=== PATIENT | male | born 1955 | race Caucasian/White ===

== ENCOUNTER 2019-04-27 23:32 | Emergency (ER) | payer OTHER, BC ==
[2019-04-27 23:46] VITALS: TEMP 98; BMI 19.2
[2019-04-28] MEDS ORDERED: ONDANSETRON 4 MG/2 ML VIAL IVPUSH ONE (00:37)
[2019-04-28] MEDS ORDERED: LACTATED RINGERS SOLUTION 1,000 ML/1,000 ML INFUS.BAG IV STA (00:37)
--- NOTE | 2019-04-28 00:45 | PDOC ---
History of Present Illness - General Chief Complaint: Nausea/Vomiting Stated Complaint: UNABLE TO RETAIN FOOD Time Seen by Provider: 04/28/19 00:20 History Source: Patient Exam Limitations: No Limitations - History of Present Illness Initial Comments: 63 yo M PMH T1DM, pancreatic neuroendocrine tumor diagnosed in 2011, currently on monthly shot (oncologist Dr. Cope at [place]), p/w 2 days of weakness, lightheadedness, and nausea w/ vomiting. Said "I overdid it yesterday" moving from his apartment, got SOB with exertion then. Took his PO Zofran around 1300, threw up around 1330. Had another episode of emesis before bed and one more today. Has had poor intake, last time he kept something down was on Wednesday. Notes that he feels dehydrated. Had his lab work checked last week, Hgb 10.4, WBC 3.6. Says his dizziness is exacerbated by sitting up quickly and feels like the room is spinning. Denies CP, SOB at rest, constipation, diarrhea, fevers/chills, RED. Endorses dizziness, lightheadedness, SOB with exertion, nausea, and vomiting. 04/28/19 00:40 Past History - Past Medical History Allergies/Adverse Reactions: Allergies Allergy/AdvReac Type Severity Reaction Status Date / Time No Known Allergies Allergy Verified 04/27/19 23:40 Home Medications: Ambulatory Orders Aspirin [ASA -] 81 mg PO DAILY 08/03/16 Insulin (Levemir) [Levemir Flexpen -] 6 units SQ DAILY 08/03/16 Metoprolol Tartrate 25 mg PO BID 08/03/16 Mometasone Furoate [Asmanex 110Mcg -] 1 inh IH DAILY 08/03/16 Cancer: Yes (PANCREATIC) COPD: No Diabetes: Yes (IDDM) - Suicide/Smoking/Psychosocial Hx Smoking History: Never smoked Hx Alcohol Use: No Drug/Substance Use Hx: No Substance Use Type: None Review of Systems - Review of Systems Able to Perform ROS?: Yes Constitutional: Yes: Weakness, Unintentional Wgt. Loss. No: Chills, Diaphoresis , Fever, Malaise HEENTM: No: Eye Pain, Blurred Vision, Tearing, Recent change in vision, Double Vision, Ear Discharge, Nose Pain, Nose Congestion, Hearing Loss, Throat Pain, Throat Swelling, Difficulty Swallowing, Mouth Swelling Respiratory: Yes: SOB with Exertion. No: Cough, Orthopnea, SOB at Rest Cardiac (ROS): Yes: Lightheadedness. No: Chest Pain, Edema, Irregular Heart Rate ABD/GI: Yes: Nausea, Poor Appetite, Poor Fluid Intake, Vomiting. No: Abdominal Distended, Blood Streaked Bowels, Constipated, Diarrhea : No: Burning, Dysuria, Discharge, Frequency, Flank Pain Neurological: No: Headache, Numbness, Paresthesia, Seizure, Tingling *Physical Exam - Vital Signs Last Vital Signs Temp Pulse Resp BP Pulse Ox 98 F 105 H 18 96/53 L 98 04/27/19 23:36 04/27/19 23:36 04/27/19 23:36 04/27/19 23:36 04/27/19 23:36 - Physical Exam General Appearance: Yes: Appropriately Dressed, Cachetic. No: Apparent Distress HEENT: positive: EOMI, KATHLEEN, Normal ENT Inspection, Normal Voice, Symmetrical, Pharynx Normal, Hearing Grossly Normal Neck: positive: Trachea midline, Normal Thyroid, Supple. negative: Tender, Rigid Respiratory/Chest: positive: Lungs Clear, Normal Breath Sounds. negative: Chest Tender, Respiratory Distress, Accessory Muscle Use Cardiovascular: positive: Regular Rhythm, Regular Rate Gastrointestinal/Abdominal: positive: Normal Bowel Sounds, Flat, Soft. negative : Tender Musculoskeletal: positive: Normal Inspection. negative: CVA Tenderness Extremity: positive: Normal Capillary Refill, Normal Inspection, Normal Range of Motion Integumentary: positive: Normal Color, Dry, Warm Neurologic: positive: backshoe person II-XII NML intact, Fully Oriented, Alert, Normal Mood/ Affect, Normal Response, Motor Strength / ED Treatment Course - LABORATORY CBC & Chemistry Diagram: 04/28/19 00:52 04/28/19 00:52 Medical Decision Making - Medical Decision Making Will give 1L LR, CBC, CMP, CXR, EKG, lipase, magnesium, acetone, UA, Zofran 04/28/19 00:47 Ph 7.44, Base Deficit -3.4 04/28/19 01:06 Hgb 9.8 04/28/19 01:07 EKG reviewed, low voltage, NSR at 88 bpm, normal axis, normal intervals, no acute ST segment elevation or T wave changes. Lipase 27 04/28/19 01:20 POC glucose 150. 07/26/19 01:33 Acetone negative. 04/28/19 01:46 Na 134, Ca 8.2 04/28/19 01:51 *DC/Admit/Observation/Transfer Diagnosis at time of Disposition: Nausea & vomiting - Discharge Dispostion Disposition: HOME Condition at time of disposition: Guarded Decision to Admit order: No - Referrals Referrals: [facility] [place] [facility] [place] [Provider Group] - Patient Instructions Printed Discharge Instructions: Pancreatic Cancer, DI for Abdominal Pain-Adult , DI for Vomiting -- Adult Additional Instructions: Please see your Primary Doctors taking care of your pancreatic cancer and provide them with the CAT scan results demonstrating mass in the liver. Return to the ER for new or concerning symptoms including but not limited to: abdominal pain, fevers, back pain, inability to eat or drink. Take over the counter medications for your pain. Thank you - Post Discharge Activity
[2019-04-28] MEDS ORDERED: FAMOTIDINE 20 MG/50 ML IVPB 20 MG/50 ML MG IVPB ONE (00:49)
--- NOTE | 2019-04-28 01:01 | PDOC ---
Documentation entered by Ana Burnett SCRIBE, acting as scribe for Pamella Moreno DO. Pamella Moreno DO: This documentation has been prepared by the Lex bustos Adrianna, SCRIBE, under my direction and personally reviewed by me in its entirety. I confirm that the documentation accurately reflects all work, treatment, procedures, and medical decision making performed by me. Attending Attestation - Resident Resident Name: Mason Smith - [facility] HPI: The patient is a 63 year old male, with a significant PMH of pancreatic cancer, diabetes, who presents to the ED for evaluation of nausea, vomit, and generalized weakness for 2 days. Patient notes he was moving things into an apartment, when he felt SOB and nauseous. Patient took his Zofran, but threw it up 30 minutes after. He endorses 2 more episodes of NBNB vomit since. He endorses generalized weakness and room-spinning dizziness. Denies fever, chills, chest pain, headache. Allergies: NKA, NKDA Surgical History: None reported Social History: Denies EtOH, tobacco, or illicit drug use - Physicial Exam PE: Constitutional: +Cachectic. +Pale. Awake, alert, oriented. No acute distress. Head: Normocephalic. Atraumatic Eyes: PERRL. EOMI. ENT: +Dry mucous membranes. Posterior pharynx without exudates or erythema. Uvula midline. Neck: Supple. Full ROM. No lymphadenopathy. Cardiovascular: +Tachycardic. Regular rhythm. S1, S2 regular. Distal pulses are 2+ and symmetric. Pulmonary/Chest: No evidence of respiratory distress. Clear to auscultation bilaterally No wheezing, rales or rhonchi. Abdominal: Soft and nondistended. There is no tenderness. No rebound, guarding or rigidity. No organomegaly. No palpable masses. Good bowel sounds. Back: No CVA tenderness. Musculoskeletal: No edema. No cyanosis. No clubbing. Full range of motion in all extremities. No calf tenderness. Radial/pedal pulses are intact and 2+ bilaterally Skin: Skin is warm and dry. No petechiae. No purpura. No rash. Neurological: Alert and oriented to person, place, and time. Cranial nerves II -XII are grossly intact. Normal speech. Strength is grossly symmetric. No sensory deficits. Psychiatric: Good eye contact. Normal interaction, affect and behavior. - Medical Decision Making 04/28/19 00:59 a/p: 63yo male with hx of neuroendocrine tumor on monthly chemo injections at [facility] presents for eval of n/v and abd cramping -nonbilious/nonbloody vomitus -pt states unable to tolerate po x 2 days -last chem was last week -pt cachectic, pale -abd is soft, nt -will send labs, ekg, cxr -will send acetone and finger stick for glucose -will start ivf hydration, zofran -will monitor and reassess 04/28/19 01:42 no elevated wbc h/h stable acetone neg gluc 150 chem pending 04/28/19 01:58 elevated lft abd pain, n/v, hx of ca will obtain ct abd/pelvis -will give another L nss 04/28/19 01:59 pt signed out to the oncoming ED physician pending ct imaging. Heart Score/ECG Review - ECG Intrepretation Comment:: 04/28/19 00:59 sinus at 88, nl axis, nl interval, no acute st/t wave findings
[2019-04-28 01:02] LABS: BASO % 0.4 % (0-2.0); EOS % 2.2 % (0-4.5); HEMATOCRIT 29.7 % (35.4-49); HEMOGLOBIN 9.8 GM/dL (11.7-16.9); LYMPH % 10.1 % (8-40); MCH 25.1 pg (25.7-33.7); MCHC 32.9 g/dl (32.0-35.9); MEAN CELL VOLUME 76.1 fl (80-96); MEAN PLT VOLUME 8.6 fl (7.5-11.1); MONO % 10.2 % (3.8-10.2); NEUT % 77.1 % (42.8-82.8); PLATELET COUNT 140 K/MM3 (134-434); RBC 3.91 M/mm3 (4.00-5.60); RDW 15.9 % (11.9-15.9); VENOUS PC02 29.7 mmHg (41-51); VENOUS PH 7.44 (7.31-7.41); VENOUS PO2 87.8 mmHg (30-40); WHITE BLOOD COUNT 5.4 K/mm3 (4.0-10.0)
[2019-04-28] MEDS ORDERED: ONDANSETRON 4 MG/2 ML VIAL ONE (01:21)
[2019-04-28 01:50] LABS: ALBUMIN 2.6 g/dl (3.4-5.0); BILIRUBIN,TOTAL 0.5 mg/dL (0.2-1); BLOOD UREA NITROGEN 12.2 mg/dL (7-18); CALCIUM 8.2 mg/dL (8.5-10.1); CREATININE 0.6 mg/dL (0.55-1.3); POTASSIUM 4.2 mmol/L (3.5-5.1); TOT PROT 5.1 g/dl (6.4-8.2)
[2019-04-28] MEDS ORDERED: SODIUM CHLORIDE 1,000 ML IV STA (01:50)
[2019-04-28 01:53] VITALS: PULSE 85
[2019-04-28 02:17] LABS: EPI CELLS 5.8 /HPF (0-5/HPF); HYALINE CASTS 72 /lpf (0-8); URINE APPEARANCE CLOUDY; URINE BACTERIA 3.5 /hpf (NEGATIVE); URINE BILIRUBIN NEGATIVE (NEGATIVE); URINE COLOR DK YELLOW; URINE GLUCOSE (UA) 1+ (NEGATIVE); URINE KETONE TRACE (NEGATIVE); URINE LEUK ESTERASE NEGATIVE (NEGATIVE); URINE NITRITE NEGATIVE (NEGATIVE); URINE PROTEIN 2+ (NEGATIVE); URINE RBC 1 /hpf (0-4); URINE WBC 2 /hpf (0-5)
[2019-04-28 04:13] VITALS: BP 96/56
--- NOTE | 2019-04-28 04:20 | PDOC ---
*Physical Exam - Vital Signs Last Vital Signs Temp Pulse Resp BP Pulse Ox 98 F 85 18 96/56 L 99 04/27/19 23:36 04/28/19 04:13 04/28/19 01:52 04/28/19 04:13 04/28/19 04:13 ED Treatment Course - LABORATORY CBC & Chemistry Diagram: 04/28/19 00:52 04/28/19 00:52 - ADDITIONAL ORDERS Additional order review: Laboratory Results 04/28/19 04/28/19 04/28/19 02:10 01:29 00:52 VBG pH 7.44 H POC VBG pCO2 29.7 L POC VBG pO2 87.8 H VBG HCO3 19.7 L VBG O2 Sat (Inez) 97.6 H VBG Base Excess -3.4 L Sodium Potassium Chloride Carbon Dioxide Anion Gap BUN Creatinine Est GFR (CKD-EPI)AfAm Est GFR (CKD-EPI)NonAf POC Glucometer 150 Random Glucose Calcium Magnesium Total Bilirubin AST ALT Alkaline Phosphatase Total Protein Albumin Lipase Urine Color Dk yellow Urine Appearance Cloudy Urine pH 5.0 Ur Specific Haughton 1.022 Urine Protein 2+ H Urine Glucose (UA) 1+ H Urine Ketones Trace H Urine Blood Negative Urine Nitrite Negative Urine Bilirubin Negative Urine Urobilinogen 1.0 Ur Leukocyte Esterase Negative Urine WBC (Auto) 2 Urine RBC (Auto) 1 Urine Casts (Auto) 72 U Epithel Cells (Auto) 5.8 Urine Bacteria (Auto) 3.5 Acetone, Qual 04/28/19 04/28/19 04/28/19 00:52 00:52 00:52 VBG pH POC VBG pCO2 POC VBG pO2 VBG HCO3 VBG O2 Sat (Inez) VBG Base Excess Sodium 134 L Potassium 4.2 Chloride 105 Carbon Dioxide 22 Anion Gap 7 L BUN 12.2 Creatinine 0.6 Est GFR (CKD-EPI)AfAm 124.89 Est GFR (CKD-EPI)NonAf 107.76 POC Glucometer Random Glucose 163 H Calcium 8.2 L Magnesium 2.0 Total Bilirubin 0.5 AST 53 H ALT 99 H Alkaline Phosphatase 98 Total Protein 5.1 L Albumin 2.6 L Lipase 27 L Urine Color Urine Appearance Urine pH Ur Specific Haughton Urine Protein Urine Glucose (UA) Urine Ketones Urine Blood Urine Nitrite Urine Bilirubin Urine Urobilinogen Ur Leukocyte Esterase Urine WBC (Auto) Urine RBC (Auto) Urine Casts (Auto) U Epithel Cells (Auto) Urine Bacteria (Auto) Acetone, Qual Negative 04/28/19 04/28/19 01:29 00:52 RBC 3.91 L MCV 76.1 L MCHC 32.9 RDW 15.9 D MPV 8.6 D Neutrophils % 77.1 Lymphocytes % 10.1 D Monocytes % 10.2 Eosinophils % 2.2 D Basophils % 0.4 POC Glucometer 150 - Medications Given in the ED: ED Medications Discontinued Medications Generic Name Dose Route Start Last Admin Trade Name Shay PRN Reason Stop Dose Admin Lactated Ringer's 1,000 ml in 1,000 mls @ 1,000 mls/hr 04/28/19 00:37 01:25 Lactated Ringers Solution IV 04/28/19 01:36 1,000 mls/hr ONCE STA Administration Famotidine/Sodium Chloride 20 mg in 50 mls @ 100 mls/hr 04/28/19 00:49 01:52 Pepcid 20 Mg Premixed Ivpb - IVPB 04/28/19 01:18 100 mls/hr ONCE ONE Administration Sodium Chloride 1,000 mls @ 1,000 mls/hr 04/28/19 01:50 04/28/19 02:07 Normal Saline - IV 04/28/19 02:49 1,000 mls/hr ASDIR STA Administration Ondansetron HCl 4 mg 04/28/19 00:37 04/28/19 01:25 Zofran Injection IVPUSH 04/28/19 00:38 4 mg NOW ONE Administration Medical Decision Making - Medical Decision Making 04/28/19 04:14 63 yo male hx of neuroendocrine tumor on monthly chemo injections at [facility] presents for eval of n/v PE shows soft non tender abdomen. Pending CTAP and plan per day team is to PO challenge and send home if no acute findings made Shows known mass in the pancreas with possible metastatic lesion to the liver which fits elevated LFTs on todays visit. Pt tolerating PO, states he feels better and would like to be DC home at this time Pt will F/U with Onc specialists at [place] Pt aware of plan and agrees *DC/Admit/Observation/Transfer Diagnosis at time of Disposition: Nausea & vomiting - Discharge Dispostion Disposition: HOME Condition at time of disposition: Stable Decision to Admit order: No - Referrals Referrals: [facility] [place] [facility] [place] [Provider Group] - Patient Instructions Printed Discharge Instructions: DI for Vomiting -- Adult, DI for Abdominal Pain -Adult, Pancreatic Cancer Additional Instructions: Please see your Primary Doctors taking care of your pancreatic cancer and provide them with the CAT scan results demonstrating mass in the liver. Return to the ER for new or concerning symptoms including but not limited to: abdominal pain, fevers, back pain, inability to eat or drink. Take over the counter medications for your pain. Thank you - Post Discharge Activity
--- NOTE | 2019-04-28 11:58 | EKG ---
Test Reason : Blood Pressure : / mmHG Vent. Rate : 088 BPM Atrial Rate : 088 BPM P-R Int : 160 ms QRS Dur : 088 ms QT Int : 378 ms P-R-T Axes : 070 022 070 degrees QTc Int : 457 ms NORMAL SINUS RHYTHM WHEN COMPARED WITH ECG OF 03-AUG-2016 20:25, NO SIGNIFICANT CHANGE WAS FOUND Confirmed by ZURDO LOPEZ MD ([id number]) on 04/28/2019 11:58:10 AM Referred By: Confirmed By:ZURDO LOPEZ MD
== END 2019-04-28 04:30 | disposition home or self-care (01) ==
LOC: JER 23:32
PROC: 3E033GC Introduction of Other Therapeutic Substance into Peripheral Vein, Percutaneous Approach (ICD-10-PCS; principal; 2019-04-27)
PROC: 3E0337Z Introduction of Electrolytic and Water Balance Substance into Peripheral Vein, Percutaneous Approach (ICD-10-PCS; 2019-04-27)
DX: R11.2 Nausea with vomiting, unspecified (principal); E11.9 Type 2 diabetes mellitus without complications; Z85.07 Personal history of malignant neoplasm of pancreas; Z79.4 Long term (current) use of insulin; Z79.82 Long term (current) use of aspirin
CPT/HCPCS: 36415; 71045-TC-FY; 74177-TC; 80053; 81003; 82009; 82803; 82962; 83690; 83735; 85025; 93005; 93010; 99283-25; J7030

== ENCOUNTER 2019-07-03 14:17 | Inpatient (IN) | payer OTHER, BC ==
--- NOTE | 2019-07-03 14:51 | PDOC ---
History of Present Illness - General Stated Complaint: Diarrhea - History of Present Illness Initial Comments: The pt is a 64M w/ a history of HTN, DM, and metatstatic pancreatic cancer ( Xeloda and another medication that he does not know the name of) who presents for evaluation of 2 days of fever (Tm 100.8), 5 days of NBNB diarrhea, and 1 day of NBNB N/V. The pt endorses his sons as sick contacts w/ cough but denies cough himself. His last treatment was 13 days ago and is due to start another round this coming Wednesday. Denies RED, vision changes, cough, abdominal pain, dysuria, hematuria, or rash. BG at home was 161 Onc and Endocrine are at [facility] Onc - Dr. Aretha Cope ([phone]) Endocrine - Dr. Platt (sp?) 07/03/19 15:36 Past History - Past Medical History Allergies/Adverse Reactions: Allergies Allergy/AdvReac Type Severity Reaction Status Date / Time No Known Allergies Allergy Verified 04/27/19 23:40 Home Medications: Ambulatory Orders Aspirin [ASA -] 81 mg PO DAILY 08/03/16 Insulin (Levemir) [Levemir Flexpen -] 6 units SQ DAILY 08/03/16 Metoprolol Tartrate 25 mg PO BID 08/03/16 Mometasone Furoate [Asmanex 110Mcg -] 1 inh IH DAILY 08/03/16 Cancer: Yes (PANCREATIC) COPD: No Diabetes: Yes (IDDM) - Psycho Social/Smoking Cessation Hx Smoking History: Never smoked Hx Alcohol Use: No Drug/Substance Use Hx: No Substance Use Type: None Review of Systems - Review of Systems Able to Perform ROS?: Yes Comments:: GENERAL/CONSTITUTIONAL: +Fever; No weakness HEAD, EYES, EARS, NOSE AND THROAT: No change in vision. No change in hearing. No sore throat CARDIOVASCULAR: No chest pain or shortness of breath RESPIRATORY: Denies cough, hemoptysis GASTROINTESTINAL: No nausea, vomiting, diarrhea or constipation GENITOURINARY: No dysuria, frequency, or change in urination MUSCULOSKELETAL: No joint or muscle swelling or pain. No neck or back pain SKIN: No rash NEUROLOGIC: No headache, vertigo, loss of consciousness, or change in strength/ sensation ENDOCRINE: No increased thirst. +7 year weight loss since dx but has not noticed any acute change in weight HEMATOLOGIC/LYMPHATIC: No anemia, easy bleeding, or history of blood clots ALLERGIC/IMMUNOLOGIC: No hives or skin allergy 07/03/19 14:50 Is the patient limited Marshallese proficient: No *Physical Exam - Vital Signs 07/03/19 15:42 - Physical Exam Comments: GENERAL: Awake, alert, and oriented to person/place/time, appears tired/ cachectic HEAD: No signs of trauma, normocephalic, atraumatic EYES: PERRLA, EOMI, sclera anicteric, conjunctiva clear ENT: Hearing grossly normal, nares patent, oropharynx clear without exudates. Moist mucosa LUNGS: No distress, speaks in full sentences, clear to auscultation bilaterally HEART: Regular rate and rhythm, normal S1 and S2, no murmurs appreciated, peripheral pulses normal and equal bilaterally ABDOMEN: Soft, nontender, normoactive bowel sounds. No guarding, no rebound EXTREMITIES: Normal inspection, Normal range of motion, no edema. No clubbing or cyanosis NEUROLOGICAL: Cranial nerves II through XII grossly intact. Normal speech, no focal sensorimotor deficits SKIN: Warm, Dry 07/03/19 14:50 ED Treatment Course - LABORATORY CBC & Chemistry Diagram: 07/03/19 15:30 07/03/19 15:30 Medical Decision Making - Medical Decision Making The pt is a 64M w/ a history of HTN, DM, and metastatic prostate ca (last tx 13 days ago) who presents for evaluation of fever, N/V/D ED Course Labs sent Ofirmev and Zofran for symptomatic relief IVF Vanc/Zosyn for broad coverage 07/03/19 15:43 No leukocytosis Mild anemia, no indication to transfuse at this time Lytes unremarkable No ASCENCION LFTs mildly elevated, known mets to liver Trop I neg CXR w/o PNA UA pending Case discusses again with ICU who will now accept admission Ofirmev re-dosed for fever Pt to continue to receive Vanc/Zosyn 07/03/19 21:35 Discharge - Discharge Information Problems reviewed: Yes Clinical Impression/Diagnosis: Neuroendocrine cancer Sepsis Qualifiers: Sepsis type: sepsis due to unspecified organism Sepsis acute organ dysfunction status: unspecified Qualified Code(s): A41.9 - Sepsis, unspecified organism Nausea & vomiting Qualifiers: Vomiting type: unspecified Vomiting Intractability: non-intractable Qualified Code(s): R11.2 - Nausea with vomiting, unspecified Condition: Fair - Admission Yes - Follow up/Referral - Patient Discharge Instructions - Post Discharge Activity
--- NOTE | 2019-07-03 15:06 | PDOC ---
Attending Attestation - Resident Resident Name: Luis Arora - HPI HPI: 07/03/19 16:10 Pt presents to the ED complaining of fever and diarrhea. History of pancreatic CA, currently on chemo, presented with neutropenic fever in the past. 07/03/19 16:10 - Physicial Exam PE: 07/03/19 16:11 Agree with resident exam. PAtient is alert and oriented and in no acute distress. Lungs are clear. Heart regular rate and rhythm. Abdomen soft, non tender, non distended. - Medical Decision Making 07/03/19 16:13 Pt presents to the ED complaining of fever. History of pancreatic CA on active chemo. Concern for sepsis, neutropenic fever. Will treat with IVF, broad spectrum antibiotics, admit to medicine
[2019-07-03] MEDS ORDERED: SODIUM CHLORIDE 0.9% 500 ML INFUS.BAG IV ONE ×2 (15:10→17:31)
[2019-07-03] MEDS ORDERED: ONDANSETRON 4 MG/2 ML VIAL IVPUSH ONE (15:10)
[2019-07-03] MEDS ORDERED: ONDANSETRON 4 MG/2 ML VIAL ONE (15:11)
[2019-07-03] MEDS ORDERED: ACETAMINOPHEN INJECTION 100 ML IVPB ONE ×2 (15:19→20:53)
[2019-07-03] MEDS ORDERED: PIPERACILLIN/TAZOB 3.375 GM 3.375 GM in DEXTROSE 5%-WATER - 50 ML IVPB ONE (15:28)
[2019-07-03 15:42] LABS: VENOUS PC02 33.7 mmHg (38-52); VENOUS PH 7.43 (7.31-7.41)
[2019-07-03] MEDS ORDERED: ACETAMINOPHEN 1000 MG/100 ML VIAL (NON FORMULARY) IVPB ONE ×2 (15:44→20:00)
[2019-07-03 15:56] LABS: BASO % 0.2 % (0-2.0); EOS % 0.5 % (0-4.5); HEMATOCRIT 30.1 % (35.4-49); HEMOGLOBIN 10.1 GM/dL (11.7-16.9); LYMPH % 1.7 % (8-40); MCH 27.4 pg (25.7-33.7); MCHC 33.5 g/dl (32.0-35.9); MEAN CELL VOLUME 81.9 fl (80-96); MONO % 5.7 % (3.8-10.2); NEUT % 91.9 % (42.8-82.8); PLATELET COUNT 139 K/MM3 (134-434); RBC 3.68 M/mm3 (4.00-5.60); RDW 20.3 % (11.9-15.9); WHITE BLOOD COUNT 5.4 K/mm3 (4.0-10.0)
[2019-07-03 15:56] LABS: VENOUS PO2 < 49 mmHg (28-48)
[2019-07-03 16:13] LABS: ALBUMIN 2.9 g/dl (3.4-5.0); BILIRUBIN,TOTAL 0.7 mg/dL (0.2-1); BLOOD UREA NITROGEN 17.6 mg/dL (7-18); CALCIUM 8.6 mg/dL (8.5-10.1); CREATININE 0.7 mg/dL (0.55-1.3); POTASSIUM 4.4 mmol/L (3.5-5.1); TOT PROT 5.4 g/dl (6.4-8.2)
[2019-07-03 16:32] LABS: INR 1.12 (0.83-1.09); PROTHROMBIN TIME (PATIENT) 13.2 SEC (9.7-13.0)
[2019-07-03 16:35] LABS: ACTIVATED PTT 24.5 SECONDS (25.2-36.5)
[2019-07-03 16:51] LABS: PLATELET ESTIMATE ADEQUATE
--- NOTE | 2019-07-03 19:19 | CONSULT ---
Consultation: REQUESTING PROVIDER: ED team CONSULT REQUEST: We have been asked to medically evaluate this patient for ( sepsis). HISTORY OF PRESENT ILLNESS: The pt is a 64M w/ a history of DM, and metatstatic pancreatic cancer who presents for evaluation of 2 days of fever (Tm 100.8), 5 days of NBNB diarrhea, and 1 day of NBNB N/V. The pt endorses his sons as sick contacts w/ cough but denies cough himself. His last treatment was 13 days ago and is due to start another round this coming Wednesday. Denies RED, vision changes, cough, abdominal pain, dysuria, hematuria, or rash. BG at home was 161 Onc and Endocrine are at [facility] Onc - Dr. Aretha Cope ([phone]) Endocrine - Dr. 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 REVIEW OF SYSTEMS: CONSTITUTIONAL: Absent: fever, chills, diaphoresis, generalized weakness, malaise, loss of appetite, weight change HEENT: Absent: rhinorrhea, nasal congestion, throat pain, throat swelling, difficulty swallowing, mouth swelling, ear pain, eye pain, visual changes CARDIOVASCULAR: Absent: chest pain, syncope, palpitations, irregular heart rate, lightheadedness , peripheral edema RESPIRATORY: Absent: cough, shortness of breath, dyspnea with exertion, orthopnea, wheezing, stridor, hemoptysis GASTROINTESTINAL: Absent: abdominal pain, abdominal distension, nausea, vomiting, diarrhea, constipation, melena, hematochezia GENITOURINARY: Absent: dysuria, frequency, urgency, hesitancy, hematuria, flank pain, genital pain MUSCULOSKELETAL: Absent: myalgia, arthralgia, joint swelling, back pain, neck pain SKIN: Absent: rash, itching, pallor HEMATOLOGIC/IMMUNOLOGIC: Absent: easy bleeding, easy bruising, lymphadenopathy, frequent infections ENDOCRINE: Absent: unexplained weight gain, unexplained weight loss, heat intolerance, cold intolerance NEUROLOGIC: Absent: headache, focal weakness or paresthesias, dizziness, unsteady gait, seizure, mental status changes, bladder or bowel incontinence PSYCHIATRIC: Absent: anxiety, depression, suicidal or homicidal ideation, hallucinations. PHYSICAL EXAMINATION Vital Signs - 24 hr 07/03/19 07/03/19 14:35 17:40 Temperature 100.0 F H 99.0 F Pulse Rate 115 H Pulse Rate [ 96 H Right] Respiratory 16 17 Rate Blood Pressure 97/56 L Blood Pressure 77/46 L [Left Arm] O2 Sat by Pulse 94 L 100 Oximetry (%) GENERAL: Awake, alert, and fully oriented, in no acute distress. HEAD: Normal with no signs of trauma. EYES: Pupils equal, round and reactive to light, extraocular movements intact, LUNGS: Breath sounds equal, clear to auscultation bilaterally. No wheezes, and no crackles. No accessory muscle use. HEART: sinus tachy, normal S1 and S2 without murmur, rub or gallop. ABDOMEN: Soft, nontender, not distended, normoactive bowel sounds, MUSCULOSKELETAL: Normal range of motion at all joints. No bony deformities or tenderness. No CVA tenderness. UPPER EXTREMITIES: 2+ pulses, warm, well-perfused. No cyanosis. No clubbing. Cap refill <2 seconds. No peripheral edema. LOWER EXTREMITIES: 2+ pulses, warm, well-perfused. No calf tenderness. No peripheral edema. NEUROLOGICAL: Cranial nerves II-XII intact. Normal speech. Normal gait. PSYCHIATRIC: Cooperative. Good eye contact. Appropriate mood and affect. SKIN: Warm, dry, Laboratory Results - last 24 hr 07/03/19 07/03/19 07/03/19 15:30 15:30 15:30 WBC 5.4 RBC 3.68 L Hgb 10.1 L Hct 30.1 L MCV 81.9 MCH 27.4 MCHC 33.5 RDW 20.3 H Plt Count 139 MPV 9.0 Absolute Neuts (auto) 5.0 Total Counted 100 Neutrophils % 91.9 H Neutrophils % (Manual) 94.0 H Band Neutrophils % 3.0 Lymphocytes % 1.7 L D Lymphocytes % (Manual) 2.0 L Monocytes % 5.7 Monocytes % (Manual) 1 L Eosinophils % 0.5 Basophils % 0.2 Nucleated RBC % 0 Platelet Estimate Adequate PT with INR INR PTT (Actin FS) VBG pH POC VBG pCO2 POC VBG pO2 VBG HCO3 VBG O2 Sat (Inez) VBG Base Excess Sodium 137 Potassium 4.4 Chloride 108 H Carbon Dioxide 23 Anion Gap 7 L BUN 17.6 Creatinine 0.7 Est GFR (CKD-EPI)AfAm 116.40 Est GFR (CKD-EPI)NonAf 100.43 Random Glucose 164 H Lactic Acid Calcium 8.6 Total Bilirubin 0.7 AST 48 H ALT 73 H Alkaline Phosphatase 116 Troponin I < 0.02 Total Protein 5.4 L Albumin 2.9 L 07/03/19 07/03/19 07/03/19 15:30 15:30 15:34 WBC RBC Hgb Hct MCV MCH MCHC RDW Plt Count MPV Absolute Neuts (auto) Total Counted Neutrophils % Neutrophils % (Manual) Band Neutrophils % Lymphocytes % Lymphocytes % (Manual) Monocytes % Monocytes % (Manual) Eosinophils % Basophils % Nucleated RBC % Platelet Estimate PT with INR 13.20 H INR 1.12 H PTT (Actin FS) 24.5 L VBG pH 7.43 H POC VBG pCO2 33.7 L POC VBG pO2 < 49 H VBG HCO3 22.0 L VBG O2 Sat (Inez) 73.6 VBG Base Excess -1.4 Sodium Potassium Chloride Carbon Dioxide Anion Gap BUN Creatinine Est GFR (CKD-EPI)AfAm Est GFR (CKD-EPI)NonAf Random Glucose Lactic Acid 1.5 Calcium Total Bilirubin AST ALT Alkaline Phosphatase Troponin I Total Protein Albumin CBC, BMP 07/03/19 15:30 07/03/19 15:30 ASSESSMENT/PLAN: The pt is a 64M w/ a history of DM, and metatstatic pancreatic cancer who presents for evaluation of 2 days of fever (Tm 100.8), 5 days of NBNB diarrhea, and 1 day of NBNB N/V. was found to have gram negative bacilli and admitted to ICU for sepsis. sever Sepsis2/2 gram negative bacilli diarrhea N/V Pancreatic cancer with mets on chemo therapy Neuroendocrine cancer DM Type I on levemir 18 units HS and 8 units Novolog ACHS will give 8 units this am and then manage DM per primary team. h/o Hypothyroidism anemia unknown base line * monitor closely in icu , pt is stable and responding to fluids , denies any dizziness , light headedness , reports fever , chills, was found hypotensive 80 /60 and tachycardic 120 * monitor vitals , BP, HR , temp * mcleod cx blood urine and sputum. * IV fluids 3 L NS bolus and maintenance @125 cc/hr NS * C.diff * stool ova and paracytes * abx van/zosyn cont * consult ID * cxr no acute pathology * trend lactic acid , wbc, * resume home meds except BB and bp meds * consult heme/oncology for chemotherapy * monitor h/H daily * zofran for nausea * monitor QTC * dvts proph * diabetic diet Dispo: We will continue to follow the patient. Thank you for this consultative opportunity. Visit type - Emergency Visit Emergency Visit: Yes ED Registration Date: 07/03/19 Care time: The patient presented to the Emergency Department on the above date and was hospitalized for further evaluation of their emergent condition. - New Patient This patient is new to me today: Yes Date on this admission: 07/04/19 - Critical Care Critical Care patient: Yes Total Critical Care Time (in minutes): 45 Critical Care Statement: The care of this patient involved high complexity decision making to prevent further life threatening deterioration of the patient 's condition and/or to evaluate & treat vital organ system(s) failure or risk of failure. ATTENDING PHYSICIAN STATEMENT I saw and evaluated the patient. I reviewed the resident's note and discussed the case with the resident. I agree with the resident's findings and plan as documented. SUBJECTIVE: OBJECTIVE: ASSESSMENT AND PLAN:
--- NOTE | 2019-07-03 21:59 | HP ---
Admitting History and Physical - Primary Care Physician PCP: Lennox Macario - Admission History of Present Illness: 64M w/ a history of HTN, DM, and metatstatic pancreatic cancer (Xeloda and another medication that he does not know the name of) who presents for evaluation of 2 days of fever (Tm 100.8), 5 days of NBNB diarrhea, and 1 day of NBNB N/V. The pt endorses his sons as sick contacts w/ cough but denies cough himself. His last treatment was 13 days ago and is due to start another round this coming Wednesday. Denies RED, vision changes, cough, abdominal pain, dysuria, hematuria, or rash. BG at home was 161 - Past Medical History Gastrointestinal: Yes: Cancer (Pancreatic CA) Heme/Onc: Yes: Cancer (pancreatic) - Smoking History Smoking history: Never smoked Have you smoked in the past 12 months: No - Alcohol/Substance Use Hx Alcohol Use: No Home Medications - Allergies Allergies/Adverse Reactions: Allergies Allergy/AdvReac Type Severity Reaction Status Date / Time No Known Allergies Allergy Verified 04/27/19 23:40 - Home Medications Home Medications: Ambulatory Orders Aspirin [ASA -] 81 mg PO DAILY 08/03/16 Insulin (Levemir) [Levemir Flexpen -] 6 units SQ DAILY 08/03/16 Metoprolol Tartrate 25 mg PO BID 08/03/16 Mometasone Furoate [Asmanex 110Mcg -] 1 inh IH DAILY 08/03/16 Physical Examination Vital Signs: Vital Signs Temperature 99.0 F 07/03/19 17:40 Pulse Rate 126 H 07/03/19 21:04 Respiratory Rate 18 07/03/19 21:04 Blood Pressure 99/51 L 07/03/19 21:04 O2 Sat by Pulse Oximetry (%) 100 07/03/19 17:40 Constitutional: Yes: No Distress HENT: Yes: Atraumatic Neck: Yes: Supple Cardiovascular: Yes: Regular Rate and Rhythm Respiratory: Yes: CTA Bilaterally Gastrointestinal: Yes: Normal Bowel Sounds Extremities: Yes: WNL Neurological: Yes: Alert, Oriented Labs: CBC, BMP 07/03/19 15:30 07/03/19 15:30 Problem List - Problems (1) Nausea & vomiting Assessment/Plan: prn zofran ivf Code(s): R11.2 - NAUSEA WITH VOMITING, UNSPECIFIED Qualifiers: Vomiting type: unspecified Vomiting Intractability: non-intractable Qualified Code(s): R11.2 - Nausea with vomiting, unspecified (2) Neuroendocrine cancer Code(s): C7A.8 - OTHER MALIGNANT NEUROENDOCRINE TUMORS (3) Sepsis Assessment/Plan: iv bx cxs sent Code(s): A41.9 - SEPSIS, UNSPECIFIED ORGANISM Qualifiers: Sepsis type: sepsis due to unspecified organism Sepsis acute organ dysfunction status: unspecified Qualified Code(s): A41.9 - Sepsis, unspecified organism (4) New onset type 1 diabetes mellitus, uncontrolled Assessment/Plan: monitor bgms Code(s): E10.65 - TYPE 1 DIABETES MELLITUS WITH HYPERGLYCEMIA Assessment/Plan Laboratory Tests 07/03/19 07/03/19 07/03/19 15:30 15:30 15:30 WBC 5.4 RBC 3.68 L Hgb 10.1 L Hct 30.1 L MCV 81.9 MCH 27.4 MCHC 33.5 RDW 20.3 H Plt Count 139 MPV 9.0 Absolute Neuts (auto) 5.0 Total Counted 100 Neutrophils % 91.9 H Neutrophils % (Manual) 94.0 H Band Neutrophils % 3.0 Lymphocytes % 1.7 L D Lymphocytes % (Manual) 2.0 L Monocytes % 5.7 Monocytes % (Manual) 1 L Eosinophils % 0.5 Basophils % 0.2 Nucleated RBC % 0 Platelet Estimate Adequate PT with INR INR PTT (Actin FS) VBG pH POC VBG pCO2 POC VBG pO2 VBG HCO3 VBG O2 Sat (Inez) VBG Base Excess Sodium 137 Potassium 4.4 Chloride 108 H Carbon Dioxide 23 Anion Gap 7 L BUN 17.6 Creatinine 0.7 Est GFR (CKD-EPI)AfAm 116.40 Est GFR (CKD-EPI)NonAf 100.43 Random Glucose 164 H Lactic Acid Calcium 8.6 Total Bilirubin 0.7 AST 48 H ALT 73 H Alkaline Phosphatase 116 Troponin I < 0.02 Total Protein 5.4 L Albumin 2.9 L 07/03/19 07/03/19 07/03/19 15:30 15:30 15:34 WBC RBC Hgb Hct MCV MCH MCHC RDW Plt Count MPV Absolute Neuts (auto) Total Counted Neutrophils % Neutrophils % (Manual) Band Neutrophils % Lymphocytes % Lymphocytes % (Manual) Monocytes % Monocytes % (Manual) Eosinophils % Basophils % Nucleated RBC % Platelet Estimate PT with INR 13.20 H INR 1.12 H PTT (Actin FS) 24.5 L VBG pH 7.43 H POC VBG pCO2 33.7 L POC VBG pO2 < 49 H VBG HCO3 22.0 L VBG O2 Sat (Inez) 73.6 VBG Base Excess -1.4 Sodium Potassium Chloride Carbon Dioxide Anion Gap BUN Creatinine Est GFR (CKD-EPI)AfAm Est GFR (CKD-EPI)NonAf Random Glucose Lactic Acid 1.5 Calcium Total Bilirubin AST ALT Alkaline Phosphatase Troponin I Total Protein Albumin Active Medications Generic Name Dose Route Start Last Admin Trade Name Freq PRN Reason Stop Dose Admin Aspirin 81 mg 07/04/19 10:00 07/04/19 09:52 Asa - PO 81 mg DAILY REY Administration Chlorhexidine Gluconate 1 applic 07/04/19 22:00 Hibiclens For Decolonization - TP HS REY Heparin Sodium (Porcine) 5,000 unit 07/03/19 22:00 07/04/19 09:52 Heparin - SQ 5,000 unit BID REY Administration Sodium Chloride 1,000 mls @ 125 mls/hr 07/03/19 23:00 07/03/19 22:59 Normal Saline - IV 125 mls/hr ASDIR REY Administration Piperacillin Sod/Tazobactam 50 mls @ 100 mls/hr 07/04/19 12:45 07/04/19 17:10 Sod 3.375 gm/ Dextrose IVPB 100 mls/hr Q8H-IV REY Administration Protocol Insulin Aspart 1 vial 07/04/19 07:00 07/04/19 16:22 Novolog Vial Sliding Scale - SQ 2 units ACHS REY Administration Protocol Mupirocin 1 applic 07/04/19 10:00 07/04/19 09:52 Bactroban Ointment (For Decolonization) - NS 07/09/19 09:59 1 applic BID REY Administration
[2019-07-03] MEDS ORDERED: HEPARIN NA (PORCINE) 5,000 UNITS/ML 1ML VIAL ONE (22:30)
[2019-07-03] MEDS ORDERED: SODIUM CHLORIDE 1,000 ML IV STA (22:48)
[2019-07-03] MEDS: HEPARIN NA (PORCINE) 5,000 UNITS/ML 1ML VIAL SQ SCH (22:58)
[2019-07-03] MEDS: SODIUM CHLORIDE 1,000 ML IV SCH (22:59)
[2019-07-04] MEDS ORDERED: PIPERACILLIN/TAZOB 2.25 GM 2.25 GM in DEXTROSE 5%-WATER - 50 ML IVPB ONE (02:15)
[2019-07-04] MEDS ORDERED: VANCOMYCIN 1 GM in D5W (PRE-DOCKED) 1,000 MG/250 ML IVPB ONE (02:30)
[2019-07-04] MEDS ORDERED: PIPERACILLIN/TAZOBACTAM 2.25 GM VIAL IVPB ONE (02:31)
[2019-07-04] MEDS ORDERED: DEXTROSE 5%-WATER - 50 ML IVPB ONE ×3 (02:31→16:36)
[2019-07-04 02:47] LABS: EPI CELLS 1.8 /HPF (0-5/HPF); HYALINE CASTS 3 /lpf (0-8); URINE APPEARANCE CLOUDY; URINE BACTERIA 2.5 /hpf (NEGATIVE); URINE BILIRUBIN NEGATIVE (NEGATIVE); URINE COLOR YELLOW; URINE GLUCOSE (UA) 3+ (NEGATIVE); URINE KETONE 1+ (NEGATIVE); URINE LEUK ESTERASE NEGATIVE (NEGATIVE); URINE NITRITE NEGATIVE (NEGATIVE); URINE PROTEIN 1+ (NEGATIVE); URINE RBC 1 /hpf (0-4); URINE UROBILINOGEN 0.2 mg/dL (0.2-1.0); URINE WBC 1 /hpf (0-5)
[2019-07-04 06:13] LABS: BASO % 0.2 % (0-2.0); EOS % 0.4 % (0-4.5); HEMATOCRIT 26.5 % (35.4-49); HEMOGLOBIN 8.8 GM/dL (11.7-16.9); LYMPH % 8.2 % (8-40); MCH 27.8 pg (25.7-33.7); MCHC 33.1 g/dl (32.0-35.9); MEAN PLT VOLUME 9.4 fl (7.5-11.1); MONO % 4.4 % (3.8-10.2); NEUT % 86.8 % (42.8-82.8); PLATELET COUNT 103 K/MM3 (134-434); RBC 3.15 M/mm3 (4.00-5.60); RDW 20.7 % (11.9-15.9); WHITE BLOOD COUNT 4.6 K/mm3 (4.0-10.0)
[2019-07-04] MEDS: INSULIN SLIDING SCALE (NOVOLOG) 1 VIAL SQ SCH ×4 (06:15→21:05)
[2019-07-04 06:24] LABS: INR 1.47 (0.83-1.09); PROTHROMBIN TIME (PATIENT) 17.4 SEC (9.7-13.0)
[2019-07-04 06:27] LABS: ACTIVATED PTT 30.3 SECONDS (25.2-36.5)
[2019-07-04] MEDS ORDERED: INSULIN (LEVEMIR) 100 UNITS/ML UNITS SQ ONE (06:31)
[2019-07-04 06:38] LABS: ALBUMIN 2.2 g/dl (3.4-5.0); BILIRUBIN,TOTAL 0.4 mg/dL (0.2-1); BLOOD UREA NITROGEN 13.9 mg/dL (7-18); CREATININE 0.8 mg/dL (0.55-1.3); MAGNESIUM 1.7 mg/dL (1.8-2.4); PHOSPHOROUS 2.4 mg/dL (2.5-4.9); POTASSIUM 4.8 mmol/L (3.5-5.1); TOT PROT 4.3 g/dl (6.4-8.2)
[2019-07-04] MEDS ORDERED: SODIUM CHLORIDE 1,000 ML IV STA (07:16)
[2019-07-04] MEDS ORDERED: MAGNESIUM OXIDE 400 MG TABLET (FP) PO ONE (08:08)
[2019-07-04] MEDS ORDERED: NAPH,MB-DB/K PH,MBDB POWDER PACKET PO ONE (08:09)
[2019-07-04] MEDS: HEPARIN NA (PORCINE) 5,000 UNITS/ML 1ML VIAL SQ SCH ×2 (09:52→21:04)
[2019-07-04] MEDS: MUPIROCIN 2% TOPICAL OINTMENT FOR DECOLONIZATION NS SCH ×2 (09:52→21:11)
[2019-07-04] MEDS: ASPIRIN 81 MG CHEWABLE TABLETS PO SCH (09:52)
[2019-07-04] MEDS ORDERED: PNEUMOC 13-VAL CONJ-DIP CRM/PF 0.5 ML DISP.SYRIN IM ONE (10:00)
[2019-07-04] MEDS ORDERED: PIPERACILLIN/TAZOB 3.375 GM 3.375 GM in DEXTROSE 5%-WATER - 50 ML IVPB SCH (10:00)
[2019-07-04] MEDS ORDERED: VANCOMYCIN 1 GM in D5W (PRE-DOCKED) 1,000 MG/250 ML IVPB SCH (10:00)
[2019-07-04] MEDS ORDERED: PIPERACILLIN/TAZOB 2.25 GM 2.25 GM in DEXTROSE 5%-WATER - 50 ML IVPB SCH (10:00)
[2019-07-04] MEDS ORDERED: FLU VACCINE QUAD 60 MCG/0.5 ML (MDV 19-20) IM ONE (10:00)
--- NOTE | 2019-07-04 10:05 | EKG ---
Test Reason : Blood Pressure : / mmHG Vent. Rate : 113 BPM Atrial Rate : 113 BPM P-R Int : 162 ms QRS Dur : 084 ms QT Int : 336 ms P-R-T Axes : 065 019 070 degrees QTc Int : 460 ms SINUS TACHYCARDIA LOW VOLTAGE QRS BORDERLINE ECG WHEN COMPARED WITH ECG OF 28-APR-2019 00:45, NO SIGNIFICANT CHANGE WAS FOUND Confirmed by MD SANDOVAL, ABHINAV ([id number]) on 07/04/2019 10:05:25 AM Also confirmed by Jered Cook MD ([id number]) on 07/04/2019 10:05:53 AM Referred By: Confirmed By:Jered Cook MD
[2019-07-04 10:55] LABS: ANISOCYTOSIS 2+; MACROCYTOSIS 0; PLATELET ESTIMATE DECREASED
--- NOTE | 2019-07-04 11:12 | EKG ---
Test Reason : Blood Pressure : / mmHG Vent. Rate : 085 BPM Atrial Rate : 085 BPM P-R Int : 166 ms QRS Dur : 088 ms QT Int : 380 ms P-R-T Axes : 055 002 034 degrees QTc Int : 452 ms NORMAL SINUS RHYTHM NORMAL ECG WHEN COMPARED WITH ECG OF 03-JUL-2019 15:19, NO SIGNIFICANT CHANGE WAS FOUND Confirmed by MD SANDOVAL, ABHINAV ([id number]) on 07/04/2019 11:12:32 AM Referred By: Neal GILLIAM Confirmed By:ABHINAV NICK MD
--- NOTE | 2019-07-04 11:34 | PN ---
Teaching Attending Note Name of Resident: Marko Holcomb ATTENDING PHYSICIAN STATEMENT I saw and evaluated the patient. I reviewed the resident's note and discussed the case with the resident. I agree with the resident's findings and plan as documented. SUBJECTIVE: Pt seen and examined in the ICU. Blood pressures borderline but pt reports baseline BP 90/60. Blood cultures growing gram negative bacilli. OBJECTIVE: Vital Signs Period Temp Pulse Resp BP Sys/Rivera Pulse Ox Last 24 Hr 98.1 F-100.0 F 86-126 13-22 77-113/46-76 94-100 Intake & Output 07/01/19 07/02/19 07/03/19 07/04/19 23:59 23:59 23:59 23:59 Intake Total 1295 Output Total 850 Balance 445 Weight 65.771 kg 71.033 kg Gen: NAD at rest Heart: RRR Lung: decreased breath sounds at the bases Abd: soft, nontender Ext: no edema CBC, BMP 07/04/19 05:24 07/04/19 05:24 Active Medications Aspirin (Asa -) 81 mg PO DAILY [facility] Last Admin: 07/04/19 09:52 Dose: 81 mg Chlorhexidine Gluconate (Hibiclens For Decolonization -) 1 applic TP HS REY Heparin Sodium (Porcine) (Heparin -) 5,000 unit SQ BID [facility] Last Admin: 07/04/19 09:52 Dose: 5,000 unit Sodium Chloride (Normal Saline -) 1,000 mls @ 125 mls/hr IV ASDIR [facility] Last Admin: 07/03/19 22:59 Dose: 125 mls/hr Piperacillin Sod/Tazobactam (Sod 3.375 gm/ Dextrose) 50 mls @ 100 mls/hr IVPB Q8H-IV REY; Protocol Metronidazole (Flagyl 500mg Premixed Ivpb -) 500 mg in 100 mls @ 100 mls/hr IVPB Q8H-IV REY Insulin Aspart (Novolog Vial Sliding Scale -) 1 vial SQ ACHS REY; Protocol Last Admin: 07/04/19 06:15 Dose: 8 units Mupirocin (Bactroban Ointment (For Decolonization) -) 1 applic NS BID REY Stop: 07/09/19 09:59 Last Admin: 07/04/19 09:52 Dose: 1 applic Vancomycin HCl (Vancomycin (Pre-Docked)) 1,000 mg IVPB DAILY REY; Protocol ASSESSMENT AND PLAN: Gram Negative Bacteremia likely GI source Sepsis Pancreatic Neuroendocrine Ca with liver mets DM Hypothyroidsm Thrombocytopenia Anemia - continue antibiotics - f/u cultures - CT A/P with contrast - IVF - monitor urine output, creatinine - replete lytes - monitor CBC, coags, fibrinogen level - O2 to keep Spo2 >90% - DVT prophylaxis - continue ICU monitoring critical care time spent in reviewing chart, evaluating patient and formulating plan 35 min
--- NOTE | 2019-07-04 12:24 | CON.ID ---
Consult Consult Specialty:: infectious diseases Referred by:: Reason for Consultation:: sepsis,gm negative bacteremia,dirrhoea - History of Present Illness Chief Complaint: dirrhoea,fever History of Present Illness: 64M w/ a history of HTN, DM, and metatstatic pancreatic cancer who presents for evaluation of 2 days of fever (Tm 100.8), 5 days of NBNB diarrhea, and 1 day of NBNB N/V. The pt endorses his sons as sick contacts w/ cough but denies cough himself. His last treatment was 13 days ago and is due to start another round this coming Wednesday. Denies RED, vision changes, cough, abdominal pain, dysuria, hematuria, or rash. - History Source History Provided By: Patient Limitations to Obtaining History: No Limitations - Past Medical History Gastrointestinal: Yes: Cancer (Pancreatic CA) - Alcohol/Substance Use Hx Alcohol Use: No - Smoking History Smoking history: Never smoked Have you smoked in the past 12 months: No Home Medications - Allergies Allergies/Adverse Reactions: Allergies Allergy/AdvReac Type Severity Reaction Status Date / Time No Known Allergies Allergy Verified 04/27/19 23:40 - Home Medications Home Medications: Ambulatory Orders Aspirin [ASA -] 81 mg PO DAILY 08/03/16 Insulin (Levemir) [Levemir Flexpen -] 6 units SQ DAILY 08/03/16 Metoprolol Tartrate 25 mg PO BID 08/03/16 Mometasone Furoate [Asmanex 110Mcg -] 1 inh IH DAILY 08/03/16 Review of Systems - Review of Systems Constitutional: reports: Chills, Fever Eyes: reports: No Symptoms HENT: reports: No Symptoms Neck: reports: No Symptoms Cardiovascular: reports: No Symptoms Respiratory: reports: No Symptoms Gastrointestinal: reports: Abdominal Pain, Diarrhea Musculoskeletal: reports: No Symptoms Integumentary: reports: No Symptoms Neurological: reports: No Symptoms Endocrine: reports: No Symptoms Hematology/Lymphatic: reports: No Symptoms Psychiatric: reports: No Symptoms Physical Exam Vital Signs: Vital Signs Temperature 97.6 F 07/04/19 11:00 Pulse Rate 88 07/04/19 10:00 Respiratory Rate 20 07/04/19 10:00 Blood Pressure 87/56 L 07/04/19 10:00 O2 Sat by Pulse Oximetry (%) 98 07/04/19 09:00 Constitutional: Yes: No Distress, Calm Cardiovascular: Yes: Regular Rate and Rhythm Respiratory: Yes: Regular, CTA Bilaterally Gastrointestinal: Yes: Normal Bowel Sounds, Soft Musculoskeletal: Yes: WNL Extremities: Yes: WNL Integumentary: Yes: WNL Neurological: Yes: Alert, Oriented Psychiatric: Yes: Alert, Oriented Labs: CBC, BMP 07/04/19 05:24 07/04/19 05:24 Imaging - Results Chest X-ray: Report Reviewed, Image Reviewed Assessment/Plan patient with multiple medical problems wiht pancreatic cancer in sepsis and bacteremic admitted to icu i think his source his gi, Gram Negative Bacteremia likely GI source Sepsis Pancreatic Neuroendocrine Ca with liver mets DM Hypothyroidsm Thrombocytopenia Anemia plan repeat blood cx will start patient on zosyn hydration close monitoring hydration rest as per icu cc 40 min
[2019-07-04] MEDS ORDERED: PIPERACILLIN/TAZOBACTAM 3.375 GM VIAL IVPB ONE ×2 (12:56→16:36)
[2019-07-04] MEDS: PIPERACILLIN/TAZOB 3.375 GM 3.375 GM in DEXTROSE 5%-WATER - 50 ML IVPB SCH ×2 (12:59→17:10)
--- NOTE | 2019-07-04 14:55 | PN ---
Physical Exam: SUBJECTIVE: Patient seen and examined in ICU. No acute events, pt jno longer febrile, nauseous, or having diarrhea. Pt denies any dyspnea or angina. OBJECTIVE: Vital Signs Period Temp Pulse Resp BP Sys/Rivera Pulse Ox Last 24 Hr 97.6 F-99.0 F 84-126 13-22 77-113/46-76 98-100 GENERAL: The patient is awake, alert, and fully oriented, in no acute distress. NECK: supple. LUNGS: Breath sounds equal, clear to auscultation bilaterally, no wheezes, no crackles, no accessory muscle use. HEART: Regular rate and rhythm, S1, S2 without murmur, rub or gallop. ABDOMEN: Soft, nontender, nondistended, normoactive bowel sounds, no guarding, no rebound. EXTREMITIES: 2+ pulses, warm, well-perfused, no edema. SKIN: Warm, dry, no rashes or lesions noted Laboratory Results - last 24 hr 07/03/19 07/03/19 07/03/19 15:30 15:30 15:30 WBC 5.4 RBC 3.68 L Hgb 10.1 L Hct 30.1 L MCV 81.9 MCH 27.4 MCHC 33.5 RDW 20.3 H Plt Count 139 MPV 9.0 Absolute Neuts (auto) 5.0 Total Counted 100 Neutrophils % 91.9 H Neutrophils % (Manual) 94.0 H Band Neutrophils % 3.0 Lymphocytes % 1.7 L D Lymphocytes % (Manual) 2.0 L Monocytes % 5.7 Monocytes % (Manual) 1 L Eosinophils % 0.5 Basophils % 0.2 Nucleated RBC % 0 Hypochromia Platelet Estimate Adequate Polychromasia Poikilocytosis Anisocytosis Microcytosis Macrocytosis Schistocytes PT with INR INR PTT (Actin FS) VBG pH POC VBG pCO2 POC VBG pO2 VBG HCO3 VBG O2 Sat (Inez) VBG Base Excess Sodium 137 Potassium 4.4 Chloride 108 H Carbon Dioxide 23 Anion Gap 7 L BUN 17.6 Creatinine 0.7 Est GFR (CKD-EPI)AfAm 116.40 Est GFR (CKD-EPI)NonAf 100.43 POC Glucometer Random Glucose 164 H Lactic Acid Calcium 8.6 Phosphorus Magnesium Total Bilirubin 0.7 AST 48 H ALT 73 H Alkaline Phosphatase 116 Troponin I < 0.02 B-Natriuretic Peptide Total Protein 5.4 L Albumin 2.9 L Urine Color Urine Appearance Urine pH Ur Specific [place] Urine Protein Urine Glucose (UA) Urine Ketones Urine Blood Urine Nitrite Urine Bilirubin Urine Urobilinogen Ur Leukocyte Esterase Urine WBC (Auto) Urine RBC (Auto) Urine Casts (Auto) U Epithel Cells (Auto) Urine Bacteria (Auto) Influenza A (Rapid) Influenza B (Rapid) 07/03/19 07/03/19 07/03/19 15:30 15:30 15:34 WBC RBC Hgb Hct MCV MCH MCHC RDW Plt Count MPV Absolute Neuts (auto) Total Counted Neutrophils % Neutrophils % (Manual) Band Neutrophils % Lymphocytes % Lymphocytes % (Manual) Monocytes % Monocytes % (Manual) Eosinophils % Basophils % Nucleated RBC % Hypochromia Platelet Estimate Polychromasia Poikilocytosis Anisocytosis Microcytosis Macrocytosis Schistocytes PT with INR 13.20 H INR 1.12 H PTT (Actin FS) 24.5 L VBG pH 7.43 H POC VBG pCO2 33.7 L POC VBG pO2 < 49 H VBG HCO3 22.0 L VBG O2 Sat (Inez) 73.6 VBG Base Excess -1.4 Sodium Potassium Chloride Carbon Dioxide Anion Gap BUN Creatinine Est GFR (CKD-EPI)AfAm Est GFR (CKD-EPI)NonAf POC Glucometer Random Glucose Lactic Acid 1.5 Calcium Phosphorus Magnesium Total Bilirubin AST ALT Alkaline Phosphatase Troponin I B-Natriuretic Peptide Total Protein Albumin Urine Color Urine Appearance Urine pH Ur Specific [place] Urine Protein Urine Glucose (UA) Urine Ketones Urine Blood Urine Nitrite Urine Bilirubin Urine Urobilinogen Ur Leukocyte Esterase Urine WBC (Auto) Urine RBC (Auto) Urine Casts (Auto) U Epithel Cells (Auto) Urine Bacteria (Auto) Influenza A (Rapid) Influenza B (Rapid) ASSESSMENT/PLAN: This is a 64 y/o M w/ a history of DM, and metatstatic pancreatic cancer who presents for evaluation of 2 days of fever (Tm 100.8), 5 days of NBNB diarrhea, and 1 day of NBNB N/V. was found to have gram negative bacilli and admitted to ICU for sepsis. GI/ID-> NBNB emesis and diarrhea/fevers 2/2 septicemia from gram negative bacilli - most likely 2/2 immunocompromised state and unknown source of infn at this point - will repeat bc and start pt on zosyn and flagyl 500TID - CT abd pelvis to assess for source of infection given gram negative bacilli growth in blood. CT- showing no sign of abscess or source of infn, some ascites, left side hydronephrosis, b/l small pleural effusions, primary pancreatic tail mass, and multiple hepatic metastatic lesions. - IV fluids maintenance @125 cc/hr NS - stool ova and parasites - consult ID (Dr. Redd) - cxr no acute pathology Cardio-> HTN - holding BP meds at this time due to labile hypotension Oncology-> Pancreatic neuroendocrine CA/Anemia unknown baseline - will have pt follow up with his endocrine doctor and oncologist in [facility] to get back on his chemo regimen. - thrombocytopenia and hyperglycemia most likely 2/2 pancreatic malignancy. Endocrine -> TIDM/hypothyroidism - on levemir 18 units HS and 8 units ACHS - c/w synthroid - diabetic diet dvts proph: Heparin 5K BID Dispo: We will continue to follow the patient. Thank you for this consultative opportunity. Visit type - Emergency Visit Emergency Visit: Yes ED Registration Date: 07/03/19 Care time: The patient presented to the Emergency Department on the above date and was hospitalized for further evaluation of their emergent condition. - New Patient This patient is new to me today: Yes Date on this admission: 07/04/19 - Critical Care Critical Care patient: Yes Total Critical Care Time (in minutes): 35 Critical Care Statement: The care of this patient involved high complexity decision making to prevent further life threatening deterioration of the patient 's condition and/or to evaluate & treat vital organ system(s) failure or risk of failure. - Discharge Referral Referred to [facility] Med [facility] No ATTENDING PHYSICIAN STATEMENT I saw and evaluated the patient. I reviewed the resident's note and discussed the case with the resident. I agree with the resident's findings and plan as documented. SUBJECTIVE: OBJECTIVE: ASSESSMENT AND PLAN:
[2019-07-04 14:56] VITALS: BMI 18.6
--- NOTE | 2019-07-04 19:55 | PN ---
Progress Note, Physician - Current Medication List Current Medications: Active Medications Aspirin (Asa -) 81 mg PO DAILY [facility] Last Admin: 07/04/19 09:52 Dose: 81 mg Chlorhexidine Gluconate (Hibiclens For Decolonization -) 1 applic TP HS [facility] Heparin Sodium (Porcine) (Heparin -) 5,000 unit SQ BID [facility] Last Admin: 07/04/19 09:52 Dose: 5,000 unit Sodium Chloride (Normal Saline -) 1,000 mls @ 125 mls/hr IV ASDIR [facility] Last Admin: 07/03/19 22:59 Dose: 125 mls/hr Piperacillin Sod/Tazobactam (Sod 3.375 gm/ Dextrose) 50 mls @ 100 mls/hr IVPB Q8H-IV [facility]; Protocol Last Admin: 07/04/19 17:10 Dose: 100 mls/hr Insulin Aspart (Novolog Vial Sliding Scale -) 1 vial SQ ACHS [facility]; Protocol Last Admin: 07/04/19 16:22 Dose: 2 units Mupirocin (Bactroban Ointment (For Decolonization) -) 1 applic NS BID [facility] Stop: 07/09/19 09:59 Last Admin: 07/04/19 09:52 Dose: 1 applic - Objective Vital Signs: Vital Signs Temperature 97.4 F L 07/04/19 14:00 Pulse Rate 88 07/04/19 18:00 Respiratory Rate 16 07/04/19 18:00 Blood Pressure 91/70 07/04/19 18:00 O2 Sat by Pulse Oximetry (%) 98 07/04/19 09:00 Constitutional: Yes: No Distress HENT: Yes: Atraumatic Neck: Yes: Supple Cardiovascular: Yes: Regular Rate and Rhythm Respiratory: Yes: CTA Bilaterally Extremities: Yes: WNL Edema: No Neurological: Yes: Alert, Oriented Labs: CBC, BMP 07/04/19 05:24 07/04/19 05:24 INR, PTT INR 1.47 (0.83-1.09) H 07/04/19 05:24 Problem List - Problems (1) Nausea & vomiting Assessment/Plan: prn zofran ivf Code(s): R11.2 - NAUSEA WITH VOMITING, UNSPECIFIED Qualifiers: Vomiting type: unspecified Vomiting Intractability: non-intractable Qualified Code(s): R11.2 - Nausea with vomiting, unspecified (2) Neuroendocrine cancer Code(s): C7A.8 - OTHER MALIGNANT NEUROENDOCRINE TUMORS (3) Sepsis Assessment/Plan: iv bx cxs sent Code(s): A41.9 - SEPSIS, UNSPECIFIED ORGANISM Qualifiers: Sepsis type: sepsis due to unspecified organism Sepsis acute organ dysfunction status: unspecified Qualified Code(s): A41.9 - Sepsis, unspecified organism (4) New onset type 1 diabetes mellitus, uncontrolled Assessment/Plan: monitor bgms Code(s): E10.65 - TYPE 1 DIABETES MELLITUS WITH HYPERGLYCEMIA Assessment/Plan cc time 35 min
[2019-07-04] MEDS: SODIUM CHLORIDE 1,000 ML IV SCH (21:12)
[2019-07-04] MEDS ORDERED: CHLORHEXIDINE GLUCONATE 4% CLEANSER FOR DECOLONIZATION TP SCH (22:00)
[2019-07-05] MEDS ORDERED: PIPERACILLIN/TAZOBACTAM 3.375 GM VIAL IVPB ONE ×3 (01:29→17:35)
[2019-07-05] MEDS ORDERED: DEXTROSE 5%-WATER - 50 ML IVPB ONE ×3 (01:30→17:35)
[2019-07-05] MEDS: SODIUM CHLORIDE 1,000 ML IV SCH ×3 (01:42→22:20)
[2019-07-05] MEDS: PIPERACILLIN/TAZOB 3.375 GM 3.375 GM in DEXTROSE 5%-WATER - 50 ML IVPB SCH ×3 (01:45→18:17)
[2019-07-05] MEDS: INSULIN SLIDING SCALE (NOVOLOG) 1 VIAL SQ SCH ×4 (06:03→22:17)
[2019-07-05 06:29] LABS: BASO % 0.3 % (0-2.0); EOS % 4.6 % (0-4.5); HEMATOCRIT 27.5 % (35.4-49); HEMOGLOBIN 8.7 GM/dL (11.7-16.9); LYMPH % 14.1 % (8-40); MCH 26.9 pg (25.7-33.7); MCHC 31.7 g/dl (32.0-35.9); MEAN CELL VOLUME 84.9 fl (80-96); MEAN PLT VOLUME 9.8 fl (7.5-11.1); MONO % 9.8 % (3.8-10.2); NEUT % 71.2 % (42.8-82.8); PLATELET COUNT 101 K/MM3 (134-434); RBC 3.23 M/mm3 (4.00-5.60); RDW 21.3 % (11.9-15.9); WHITE BLOOD COUNT 3.1 K/mm3 (4.0-10.0)
[2019-07-05 07:11] LABS: ALBUMIN 2.1 g/dl (3.4-5.0); BILIRUBIN,TOTAL 0.4 mg/dL (0.2-1); BLOOD UREA NITROGEN 11.5 mg/dL (7-18); CALCIUM 7.4 mg/dL (8.5-10.1); CREATININE 0.6 mg/dL (0.55-1.3); POTASSIUM 4.2 mmol/L (3.5-5.1); TOT PROT 4.2 g/dl (6.4-8.2)
[2019-07-05] MEDS ORDERED: SENNOSIDES 8.6MG TABLET (FP) PO ONE (08:59)
[2019-07-05] MEDS: ASPIRIN 81 MG CHEWABLE TABLETS PO SCH (09:11)
[2019-07-05] MEDS: MUPIROCIN 2% TOPICAL OINTMENT FOR DECOLONIZATION NS SCH (09:12)
[2019-07-05] MEDS: HEPARIN NA (PORCINE) 5,000 UNITS/ML 1ML VIAL SQ SCH ×2 (09:12→22:16)
[2019-07-05] MEDS ORDERED: INSULIN (NOVOLOG) ASPART 100 UNITS/ML 10ML VIAL ONE (10:50)
[2019-07-05 11:55] LABS: ANISOCYTOSIS 1+; MACROCYTOSIS 1+; OVALOCYTE 1+; PLATELET ESTIMATE DECREASED
--- NOTE | 2019-07-05 12:20 | PN ---
Teaching Attending Note Name of Resident: Camila Angel ATTENDING PHYSICIAN STATEMENT I saw and evaluated the patient. I reviewed the resident's note and discussed the case with the resident. I agree with the resident's findings and plan as documented. SUBJECTIVE: Pt seen and examined in the ICU. Feels better today. No fevers. CT A/P unremarkable aside from progression in tumor size. Not on pressors. OBJECTIVE: Vital Signs Period Temp Pulse Resp BP Sys/Rivera Pulse Ox Last 24 Hr 97.4 F-98.5 F 71-88 14-20 82-124/48-98 98-98 Intake & Output 07/02/19 07/03/19 07/04/19 07/05/19 23:59 23:59 23:59 23:59 Intake Total 5395 2150 Output Total 2950 1450 Balance 2445 700 Weight 65.771 kg 65.771 kg 60.781 kg Gen: NAD at rest Heart: RRR Lung: decreased breath sounds at the bases Abd: softly distended, nontender Ext: no edema CBC, BMP 07/05/19 05:22 07/05/19 05:22 Active Medications Aspirin (Asa -) 81 mg PO DAILY [facility] Last Admin: 07/05/19 09:11 Dose: 81 mg Chlorhexidine Gluconate (Hibiclens For Decolonization -) 1 applic TP HS [facility] Last Admin: 07/04/19 21:11 Dose: 1 applic Heparin Sodium (Porcine) (Heparin -) 5,000 unit SQ BID [facility] Last Admin: 07/05/19 09:12 Dose: 5,000 unit Sodium Chloride (Normal Saline -) 1,000 mls @ 125 mls/hr IV ASDIR [facility] Last Admin: 07/05/19 01:42 Dose: Not Given Piperacillin Sod/Tazobactam (Sod 3.375 gm/ Dextrose) 50 mls @ 100 mls/hr IVPB Q8H-IV [facility]; Protocol Last Admin: 07/05/19 09:11 Dose: 100 mls/hr Insulin Aspart (Novolog Vial Sliding Scale -) 1 vial SQ ACHS [facility]; Protocol Last Admin: 07/05/19 10:46 Dose: 6 units Mupirocin (Bactroban Ointment (For Decolonization) -) 1 applic NS BID [facility] Stop: 07/09/19 09:59 Last Admin: 07/05/19 09:12 Dose: 1 applic ASSESSMENT AND PLAN: Gram Negative Bacteremia likely GI source Sepsis Pancreatic Neuroendocrine Ca with liver mets DM Hypothyroidsm Thrombocytopenia Anemia - continue antibiotics - f/u cultures - IVF - monitor urine output, creatinine - O2 to keep Spo2 >90% - DVT prophylaxis - can monitor on floor critical care time spent in reviewing chart, evaluating patient and formulating plan 35 min
--- NOTE | 2019-07-05 12:44 | PN ---
Progress Note, Physician History of Present Illness: doing well no complaints - Current Medication List Current Medications: Active Medications Aspirin (Asa -) 81 mg PO DAILY [facility] Last Admin: 07/05/19 09:11 Dose: 81 mg Chlorhexidine Gluconate (Hibiclens For Decolonization -) 1 applic TP HS [facility] Last Admin: 07/04/19 21:11 Dose: 1 applic Heparin Sodium (Porcine) (Heparin -) 5,000 unit SQ BID [facility] Last Admin: 07/05/19 09:12 Dose: 5,000 unit Sodium Chloride (Normal Saline -) 1,000 mls @ 125 mls/hr IV ASDIR [facility] Last Admin: 07/05/19 01:42 Dose: Not Given Piperacillin Sod/Tazobactam (Sod 3.375 gm/ Dextrose) 50 mls @ 100 mls/hr IVPB Q8H-IV [facility]; Protocol Last Admin: 07/05/19 09:11 Dose: 100 mls/hr Insulin Aspart (Novolog Vial Sliding Scale -) 1 vial SQ ACHS [facility]; Protocol Last Admin: 07/05/19 10:46 Dose: 6 units Mupirocin (Bactroban Ointment (For Decolonization) -) 1 applic NS BID [facility] Stop: 07/09/19 09:59 Last Admin: 07/05/19 09:12 Dose: 1 applic - Objective Vital Signs: Vital Signs Temperature 98.1 F 07/05/19 10:00 Pulse Rate 75 07/05/19 10:00 Respiratory Rate 16 07/05/19 10:00 Blood Pressure 99/63 07/05/19 10:00 O2 Sat by Pulse Oximetry (%) 98 07/05/19 09:00 Constitutional: Yes: No Distress, Calm Cardiovascular: Yes: S1, S2 Respiratory: Yes: Regular, CTA Bilaterally Gastrointestinal: Yes: Normal Bowel Sounds, Soft Musculoskeletal: Yes: WNL Extremities: Yes: WNL Neurological: Yes: Alert, Oriented Psychiatric: Yes: Alert, Oriented Labs: CBC, BMP 07/05/19 05:22 07/05/19 05:22 INR, PTT INR 1.47 (0.83-1.09) H 07/04/19 05:24 Assessment/Plan patient with multiple medical problems wiht pancreatic cancer in sepsis and bacteremic admitted to icu i think his source his gi, Gram Negative Bacteremia likely GI source Sepsis Pancreatic Neuroendocrine Ca with liver mets DM Hypothyroidsm Thrombocytopenia Anemia plan repeat blood cx zosyn hydration close monitoring hydration rest as per icu cx result noted cc 40 min
--- NOTE | 2019-07-05 12:46 | PN ---
Physical Exam: SUBJECTIVE: Patient seen and examined at bedside. pt states he is feeling better. pt states he has not had diarrhea, nausea, or vomiting OBJECTIVE: Vital Signs Period Temp Pulse Resp BP Sys/Rivera Pulse Ox Last 24 Hr 97.4 F-98.5 F 71-88 14-20 82-124/48-98 98-98 GENERAL: The patient is awake, alert, and fully oriented, in no acute distress.Thin cachectic male LUNGS: Breath sounds equal, clear to auscultation bilaterally, no wheezes, no crackles, no accessory muscle use. HEART: Regular rate and rhythm, S1, S2 without murmur, rub or gallop. ABDOMEN: Soft, nontender, nondistended, normoactive bowel sounds EXTREMITIES: 2+ pulses, warm, well-perfused, no edema. SKIN: Warm, dry, normal turgor, no rashes or lesions noted Laboratory Results - last 24 hr 07/04/19 07/04/19 07/05/19 16:18 21:03 05:22 WBC 3.1 L RBC 3.23 L Hgb 8.7 L Hct 27.5 L MCV 84.9 MCH 26.9 MCHC 31.7 L RDW 21.3 H Plt Count 101 L MPV 9.8 Absolute Neuts (auto) 2.2 Neutrophils % 71.2 Neutrophils % (Manual) 74.7 D Band Neutrophils % 2.0 Lymphocytes % 14.1 D Lymphocytes % (Manual) 15.2 D Monocytes % 9.8 D Monocytes % (Manual) 1 L Eosinophils % 4.6 H D Eosinophils % (Manual) 7.1 H Basophils % 0.3 Basophils % (Manual) 0.0 Myelocytes % (Man) 0 Promyelocytes % (Man) 0 Blast Cells % (Manual) 0 Nucleated RBC % 0 Metamyelocytes 0 Hypochromia 0 Platelet Estimate Decreased Polychromasia 0 Poikilocytosis 0 Anisocytosis 1+ Microcytosis 1+ Macrocytosis 1+ Ovalocytes 1+ Schistocytes 1+ Sodium Potassium Chloride Carbon Dioxide Anion Gap BUN Creatinine Est GFR (CKD-EPI)AfAm Est GFR (CKD-EPI)NonAf POC Glucometer 108 163 Random Glucose Calcium Total Bilirubin AST ALT Alkaline Phosphatase Total Protein Albumin 07/05/19 07/05/19 05:22 05:27 WBC RBC Hgb Hct MCV MCH MCHC RDW Plt Count MPV Absolute Neuts (auto) Neutrophils % Neutrophils % (Manual) Band Neutrophils % Lymphocytes % Lymphocytes % (Manual) Monocytes % Monocytes % (Manual) Eosinophils % Eosinophils % (Manual) Basophils % Basophils % (Manual) Myelocytes % (Man) Promyelocytes % (Man) Blast Cells % (Manual) Nucleated RBC % Metamyelocytes Hypochromia Platelet Estimate Polychromasia Poikilocytosis Anisocytosis Microcytosis Macrocytosis Ovalocytes Schistocytes Sodium 140 Potassium 4.2 Chloride 112 H Carbon Dioxide 21 Anion Gap 6 L BUN 11.5 Creatinine 0.6 Est GFR (CKD-EPI)AfAm 124.02 Est GFR (CKD-EPI)NonAf 107.00 POC Glucometer 133 Random Glucose 140 H Calcium 7.4 L Total Bilirubin 0.4 AST 41 H ALT 70 H Alkaline Phosphatase 76 Total Protein 4.2 L Albumin 2.1 L Current Medications Aspirin (Asa -) 81 mg PO DAILY [facility] Last Admin: 07/05/19 09:11 Dose: 81 mg Chlorhexidine Gluconate (Hibiclens For Decolonization -) 1 applic TP HS [facility] Last Admin: 07/04/19 21:11 Dose: 1 applic Heparin Sodium (Porcine) (Heparin -) 5,000 unit SQ BID [facility] Last Admin: 07/05/19 09:12 Dose: 5,000 unit Sodium Chloride (Normal Saline -) 1,000 mls @ 125 mls/hr IV ASDIR [facility] Last Admin: 07/05/19 01:42 Dose: Not Given Piperacillin Sod/Tazobactam (Sod 3.375 gm/ Dextrose) 50 mls @ 100 mls/hr IVPB Q8H-IV [facility]; Protocol Last Admin: 07/05/19 09:11 Dose: 100 mls/hr Insulin Aspart (Novolog Vial Sliding Scale -) 1 vial SQ ACHS [facility]; Protocol Last Admin: 07/05/19 10:46 Dose: 6 units Mupirocin (Bactroban Ointment (For Decolonization) -) 1 applic NS BID [facility] Stop: 07/09/19 09:59 Last Admin: 07/05/19 09:12 Dose: 1 applic ASSESSMENT/PLAN: 64 yo M w/ a history of DM, and metatstatic pancreatic cancer who presents for evaluation of subjective fever( 2d) , diarrhea( 5d), and NBNB N/V (x1d) was found to have gram negative bacilli and admitted to ICU for sepsis. GI/ID: Septicemia from gram negative bacilli -likely 2/2 immunocompromised state - will repeat BCx -c/w zosyn CT- showing no sign of abscess or source of infn, some ascites, left side hydronephrosis, b/l small pleural effusions, primary pancreatic tail mass, and multiple hepatic metastatic lesions. - awaiting stool ova and parasites - ID (Dr. Redd) recs appreciated - cxr no acute pathology Cardio: HTN - holding BP meds at this time 2/2 hypotension Oncology: Pancreatic neuroendocrine CA/Anemia unknown baseline - recommending pt follow up with his physical sciences professor and oncologist in [facility] to get back on his chemo regimen. - thrombocytopenia and hyperglycemia likely 2/2 pancreatic malignancy. Endocrine : TIDM/hypothyroidism - c/w levemir 18 units HS and 8 units ACHS - c/w synthroid dvt ppx: Heparin 5K BID F/E/N -c/w NS @ 125 mls/hr -monitor lytes -diabetic diet Dispo: We will continue to follow the patient. Thank you for this consultative opportunity. Visit type - Emergency Visit Emergency Visit: No - New Patient This patient is new to me today: No - Critical Care Critical Care patient: Yes Total Critical Care Time (in minutes): 36 Critical Care Statement: The care of this patient involved high complexity decision making to prevent further life threatening deterioration of the patient 's condition and/or to evaluate & treat vital organ system(s) failure or risk of failure. ATTENDING PHYSICIAN STATEMENT I saw and evaluated the patient. I reviewed the resident's note and discussed the case with the resident. I agree with the resident's findings and plan as documented. SUBJECTIVE: OBJECTIVE: ASSESSMENT AND PLAN:
--- NOTE | 2019-07-05 18:21 | PN ---
Progress Note, Physician - Current Medication List Current Medications: Active Medications Aspirin (Asa -) 81 mg PO DAILY [facility] Heparin Sodium (Porcine) (Heparin -) 5,000 unit SQ BID [facility] Sodium Chloride (Normal Saline -) 1,000 mls @ 125 mls/hr IV ASDIR [facility] Piperacillin Sod/Tazobactam (Sod 3.375 gm/ Dextrose) 50 mls @ 100 mls/hr IVPB Q8H-IV [facility]; Protocol Insulin Aspart (Novolog Vial Sliding Scale -) 1 vial SQ ACHS [facility]; Protocol - Objective Vital Signs: Vital Signs Temperature 98.0 F 07/05/19 15:58 Pulse Rate 73 07/05/19 15:58 Respiratory Rate 20 07/05/19 15:58 Blood Pressure 91/53 L 07/05/19 15:58 O2 Sat by Pulse Oximetry (%) 98 07/05/19 09:00 Constitutional: Yes: No Distress HENT: Yes: Atraumatic Neck: Yes: Supple Cardiovascular: Yes: Regular Rate and Rhythm Respiratory: Yes: CTA Bilaterally Gastrointestinal: Yes: Normal Bowel Sounds Extremities: Yes: WNL Edema: No Peripheral Pulses WNL: Yes Neurological: Yes: Alert, Oriented Labs: CBC, BMP 07/05/19 05:22 07/05/19 05:22 INR, PTT INR 1.47 (0.83-1.09) H 07/04/19 05:24 Problem List - Problems (1) Nausea & vomiting Assessment/Plan: prn zofran ivf Code(s): R11.2 - NAUSEA WITH VOMITING, UNSPECIFIED Qualifiers: Vomiting type: unspecified Vomiting Intractability: non-intractable Qualified Code(s): R11.2 - Nausea with vomiting, unspecified (2) Neuroendocrine cancer Code(s): C7A.8 - OTHER MALIGNANT NEUROENDOCRINE TUMORS (3) Sepsis Assessment/Plan: iv bx cxs sent Code(s): A41.9 - SEPSIS, UNSPECIFIED ORGANISM Qualifiers: Sepsis type: sepsis due to unspecified organism Sepsis acute organ dysfunction status: unspecified Qualified Code(s): A41.9 - Sepsis, unspecified organism (4) New onset type 1 diabetes mellitus, uncontrolled Assessment/Plan: monitor bgms Code(s): E10.65 - TYPE 1 DIABETES MELLITUS WITH HYPERGLYCEMIA
[2019-07-06] MEDS ORDERED: PIPERACILLIN/TAZOBACTAM 3.375 GM VIAL IVPB ONE ×2 (01:21→10:08)
[2019-07-06] MEDS ORDERED: DEXTROSE 5%-WATER - 50 ML IVPB ONE ×2 (01:22→10:09)
[2019-07-06] MEDS: PIPERACILLIN/TAZOB 3.375 GM 3.375 GM in DEXTROSE 5%-WATER - 50 ML IVPB SCH ×3 (01:39→20:06)
[2019-07-06] MEDS: SODIUM CHLORIDE 1,000 ML IV SCH ×2 (06:45→17:10)
[2019-07-06] MEDS: INSULIN SLIDING SCALE (NOVOLOG) 1 VIAL SQ SCH ×4 (06:47→23:14)
--- NOTE | 2019-07-06 09:48 | PN ---
Progress Note (short form) - Note Progress Note: OOB to chair. Feels overall better. No CP or SOB. Intake & Output 07/03/19 07/04/19 07/05/19 07/06/19 23:59 23:59 23:59 23:59 Intake Total 5395 2950 1300 Output Total 2950 1750 Balance 2445 1200 1300 Weight 145 lb 145 lb 134 lb Last Vital Signs Temp Pulse Resp BP Pulse Ox 97.9 F 83 20 100/60 98 07/06/19 06:00 07/06/19 06:00 07/06/19 06:00 07/06/19 06:00 07/05/19 21:00 Active Medications Aspirin (Asa -) 81 mg PO DAILY [facility] Heparin Sodium (Porcine) (Heparin -) 5,000 unit SQ BID [facility] Last Admin: 07/05/19 22:16 Dose: 5,000 unit Sodium Chloride (Normal Saline -) 1,000 mls @ 125 mls/hr IV ASDIR [facility] Last Admin: 07/06/19 06:45 Dose: 125 mls/hr Piperacillin Sod/Tazobactam (Sod 3.375 gm/ Dextrose) 50 mls @ 100 mls/hr IVPB Q8H-IV [facility]; Protocol Last Admin: 07/06/19 01:39 Dose: 100 mls/hr Insulin Aspart (Novolog Vial Sliding Scale -) 1 vial SQ ACHS [facility]; Protocol Last Admin: 07/06/19 06:47 Dose: 4 units Gen: NAD at rest Heart: RRR Lung: decreased breath sounds at the bases Abd: softly distended, nontender Ext: no edema Laboratory Results - last 24 hr 07/05/19 07/05/19 07/05/19 05:22 17:26 22:15 Neutrophils % (Manual) 74.7 D Band Neutrophils % 2.0 Lymphocytes % (Manual) 15.2 D Monocytes % (Manual) 1 L Eosinophils % (Manual) 7.1 H Basophils % (Manual) 0.0 Myelocytes % (Man) 0 Promyelocytes % (Man) 0 Blast Cells % (Manual) 0 Metamyelocytes 0 Hypochromia 0 Platelet Estimate Decreased Polychromasia 0 Poikilocytosis 0 Anisocytosis 1+ Microcytosis 1+ Macrocytosis 1+ Ovalocytes 1+ Schistocytes 1+ POC Glucometer 202 217 07/06/19 06:46 Neutrophils % (Manual) Band Neutrophils % Lymphocytes % (Manual) Monocytes % (Manual) Eosinophils % (Manual) Basophils % (Manual) Myelocytes % (Man) Promyelocytes % (Man) Blast Cells % (Manual) Metamyelocytes Hypochromia Platelet Estimate Polychromasia Poikilocytosis Anisocytosis Microcytosis Macrocytosis Ovalocytes Schistocytes POC Glucometer 181 ASSESSMENT AND PLAN: Gram Negative Bacteremia likely GI source Sepsis Pancreatic Neuroendocrine Ca with liver mets DM Hypothyroidsm Thrombocytopenia Anemia - ABX per ID - f/u final cultures - O2 to keep Spo2 >90% - DVT prophylaxis - PO as tolerated Dr Villanueva
[2019-07-06] MEDS: ASPIRIN 81 MG CHEWABLE TABLETS PO SCH (10:15)
[2019-07-06] MEDS: HEPARIN NA (PORCINE) 5,000 UNITS/ML 1ML VIAL SQ SCH ×2 (10:15→23:14)
--- NOTE | 2019-07-06 11:39 | PN ---
Progress Note, Physician History of Present Illness: doing well no complaints - Current Medication List Current Medications: Active Medications Aspirin (Asa -) 81 mg PO DAILY [facility] Last Admin: 07/06/19 10:15 Dose: 81 mg Heparin Sodium (Porcine) (Heparin -) 5,000 unit SQ BID [facility] Last Admin: 07/06/19 10:15 Dose: 5,000 unit Sodium Chloride (Normal Saline -) 1,000 mls @ 125 mls/hr IV ASDIR [facility] Last Admin: 07/06/19 06:45 Dose: 125 mls/hr Piperacillin Sod/Tazobactam (Sod 3.375 gm/ Dextrose) 50 mls @ 100 mls/hr IVPB Q8H-IV [facility]; Protocol Last Admin: 07/06/19 10:15 Dose: 100 mls/hr Insulin Aspart (Novolog Vial Sliding Scale -) 1 vial SQ ACHS [facility]; Protocol Last Admin: 07/06/19 06:47 Dose: 4 units - Objective Vital Signs: Vital Signs Temperature 97.7 F 07/06/19 09:59 Pulse Rate 82 07/06/19 09:59 Respiratory Rate 20 07/06/19 09:59 Blood Pressure 108/66 07/06/19 09:59 O2 Sat by Pulse Oximetry (%) 98 07/05/19 21:00 Constitutional: Yes: No Distress, Calm Cardiovascular: Yes: Regular Rate and Rhythm Respiratory: Yes: Regular, CTA Bilaterally Gastrointestinal: Yes: Normal Bowel Sounds, Soft Musculoskeletal: Yes: WNL Extremities: Yes: WNL Neurological: Yes: Alert, Oriented Psychiatric: Yes: Alert, Oriented Labs: CBC, BMP 07/05/19 05:22 07/05/19 05:22 INR, PTT INR 1.47 (0.83-1.09) H 07/04/19 05:24 Assessment/Plan patient with multiple medical problems wiht pancreatic cancer in sepsis and bacteremic admitted to icu i think his source his gi, Gram Negative Bacteremia likely GI source Sepsis Pancreatic Neuroendocrine Ca with liver mets DM Hypothyroidsm Thrombocytopenia Anemia plan await for repeat blood cx continue abx patient stable rest as per the team
--- NOTE | 2019-07-06 16:32 | PN ---
Progress Note, Physician History of Present Illness: doing well - Current Medication List Current Medications: Active Medications Aspirin (Asa -) 81 mg PO DAILY [facility] Last Admin: 07/06/19 10:15 Dose: 81 mg Heparin Sodium (Porcine) (Heparin -) 5,000 unit SQ BID [facility] Last Admin: 07/06/19 10:15 Dose: 5,000 unit Sodium Chloride (Normal Saline -) 1,000 mls @ 125 mls/hr IV ASDIR [facility] Last Admin: 07/06/19 06:45 Dose: 125 mls/hr Piperacillin Sod/Tazobactam (Sod 3.375 gm/ Dextrose) 50 mls @ 100 mls/hr IVPB Q8H-IV [facility]; Protocol Last Admin: 07/06/19 10:15 Dose: 100 mls/hr Insulin Aspart (Novolog Vial Sliding Scale -) 1 vial SQ ACHS [facility]; Protocol Last Admin: 07/06/19 12:07 Dose: 6 units - Objective Vital Signs: Vital Signs Temperature 98.4 F 07/06/19 15:00 Pulse Rate 72 07/06/19 15:00 Respiratory Rate 20 07/06/19 15:00 Blood Pressure 106/64 07/06/19 15:00 O2 Sat by Pulse Oximetry (%) 98 07/05/19 21:00 Constitutional: Yes: No Distress HENT: Yes: Atraumatic Neck: Yes: Supple Cardiovascular: Yes: Regular Rate and Rhythm Respiratory: Yes: CTA Bilaterally Gastrointestinal: Yes: Normal Bowel Sounds Extremities: Yes: WNL Edema: No Peripheral Pulses WNL: Yes Neurological: Yes: Alert, Oriented Labs: CBC, BMP 07/05/19 05:22 07/05/19 05:22 INR, PTT INR 1.47 (0.83-1.09) H 07/04/19 05:24 Problem List - Problems (1) Nausea & vomiting Assessment/Plan: resolved eating well Code(s): R11.2 - NAUSEA WITH VOMITING, UNSPECIFIED Qualifiers: Vomiting type: unspecified Vomiting Intractability: non-intractable Qualified Code(s): R11.2 - Nausea with vomiting, unspecified (2) Neuroendocrine cancer Code(s): C7A.8 - OTHER MALIGNANT NEUROENDOCRINE TUMORS (3) Sepsis Assessment/Plan: iv bx cxs noted Code(s): A41.9 - SEPSIS, UNSPECIFIED ORGANISM Qualifiers: Sepsis type: sepsis due to unspecified organism Sepsis acute organ dysfunction status: unspecified Qualified Code(s): A41.9 - Sepsis, unspecified organism (4) New onset type 1 diabetes mellitus, uncontrolled Assessment/Plan: monitor bgms Code(s): E10.65 - TYPE 1 DIABETES MELLITUS WITH HYPERGLYCEMIA
[2019-07-06] MEDS ORDERED: PT OWN MED DRAWER 7, Y5N ONE ×2 (20:00→22:36)
[2019-07-07] MEDS ORDERED: PIPERACILLIN/TAZOBACTAM 3.375 GM VIAL IVPB ONE ×2 (01:31→10:19)
[2019-07-07] MEDS ORDERED: DEXTROSE 5%-WATER - 50 ML IVPB ONE ×2 (01:32→10:19)
[2019-07-07] MEDS: PIPERACILLIN/TAZOB 3.375 GM 3.375 GM in DEXTROSE 5%-WATER - 50 ML IVPB SCH ×2 (02:38→10:51)
[2019-07-07] MEDS: SODIUM CHLORIDE 1,000 ML IV SCH (04:31)
[2019-07-07 06:32] VITALS: PULSE 76
[2019-07-07] MEDS: INSULIN SLIDING SCALE (NOVOLOG) 1 VIAL SQ SCH ×2 (06:39→12:09)
[2019-07-07 08:21] LABS: BASO % 0.6 % (0-2.0); EOS % 7.8 % (0-4.5); HEMATOCRIT 28.5 % (35.4-49); HEMOGLOBIN 9.4 GM/dL (11.7-16.9); LYMPH % 17.9 % (8-40); MCH 27.4 pg (25.7-33.7); MCHC 33.1 g/dl (32.0-35.9); MEAN CELL VOLUME 82.9 fl (80-96); MEAN PLT VOLUME 9.3 fl (7.5-11.1); MONO % 10.8 % (3.8-10.2); NEUT % 62.9 % (42.8-82.8); PLATELET COUNT 114 K/MM3 (134-434); RBC 3.43 M/mm3 (4.00-5.60); RDW 20.3 % (11.9-15.9); WHITE BLOOD COUNT 2.4 K/mm3 (4.0-10.0)
[2019-07-07 08:31] LABS: ALBUMIN 2.3 g/dl (3.4-5.0); BILIRUBIN,TOTAL 0.3 mg/dL (0.2-1); BLOOD UREA NITROGEN 13.1 mg/dL (7-18); CALCIUM 8.3 mg/dL (8.5-10.1); CREATININE 0.6 mg/dL (0.55-1.3); POTASSIUM 4.7 mmol/L (3.5-5.1); TOT PROT 4.9 g/dl (6.4-8.2)
--- NOTE | 2019-07-07 10:25 | DS ---
Physical Examination Vital Signs: Vital Signs Temperature 97.9 F 07/07/19 06:29 Pulse Rate 76 07/07/19 06:29 Respiratory Rate 20 07/07/19 06:29 Blood Pressure 112/65 07/07/19 06:29 O2 Sat by Pulse Oximetry (%) 100 07/06/19 21:00 Constitutional: Yes: No Distress HENT: Yes: Atraumatic Neck: Yes: Supple Cardiovascular: Yes: Regular Rate and Rhythm Respiratory: Yes: CTA Bilaterally Gastrointestinal: Yes: Normal Bowel Sounds Extremities: Yes: WNL Neurological: Yes: Alert, Oriented Labs: CBC, BMP 07/07/19 07:15 07/07/19 07:15 Discharge Summary Problems reviewed: Yes Current Active Problems Nausea & vomiting (Acute) Neuroendocrine cancer (Acute) Sepsis (Acute) Condition: Fair - Instructions Diet, Activity, Other Instructions: see your pmd in 2-3 days Disposition: HOME - Home Medications Comprehensive Discharge Medication List: Ambulatory Orders Aspirin [ASA -] 81 mg PO DAILY 08/03/16 Insulin (Levemir) [Levemir Flexpen -] 6 units SQ DAILY 08/03/16 Metoprolol Tartrate 25 mg PO BID 08/03/16 Mometasone Furoate [Asmanex 110Mcg -] 1 inh IH DAILY 08/03/16 Amox-Tr/K Cl [Augmentin - 875Mg Tablet] 1 tab PO BID #14 tablet 07/07/19 clinically stable new bcx negative ecoli sensitive to pcn dc home on po augmentin if ok with ID follow up pmd 2-3 days
[2019-07-07] MEDS: ASPIRIN 81 MG CHEWABLE TABLETS PO SCH (10:51)
[2019-07-07] MEDS: HEPARIN NA (PORCINE) 5,000 UNITS/ML 1ML VIAL SQ SCH (10:53)
[2019-07-07 11:11] VITALS: BP 102/57; TEMP 98.1
--- NOTE | 2019-07-07 11:39 | PN ---
Progress Note, Physician History of Present Illness: patient stable doing well blood cx negative - Current Medication List Current Medications: Active Medications Aspirin (Asa -) 81 mg PO DAILY [facility] Last Admin: 07/07/19 10:51 Dose: 81 mg Heparin Sodium (Porcine) (Heparin -) 5,000 unit SQ BID [facility] Last Admin: 07/07/19 10:53 Dose: Not Given Sodium Chloride (Normal Saline -) 1,000 mls @ 125 mls/hr IV ASDIR [facility] Last Admin: 07/07/19 04:31 Dose: 125 mls/hr Piperacillin Sod/Tazobactam (Sod 3.375 gm/ Dextrose) 50 mls @ 100 mls/hr IVPB Q8H-IV [facility]; Protocol Last Admin: 07/07/19 10:51 Dose: 100 mls/hr Insulin Aspart (Novolog Vial Sliding Scale -) 1 vial SQ ACHS [facility]; Protocol Last Admin: 07/07/19 06:39 Dose: 4 units - Objective Vital Signs: Vital Signs Temperature 98.1 F 07/07/19 10:00 Pulse Rate 76 07/07/19 10:00 Respiratory Rate 18 07/07/19 10:00 Blood Pressure 102/57 L 07/07/19 10:00 O2 Sat by Pulse Oximetry (%) 100 07/06/19 21:00 Constitutional: Yes: No Distress, Calm Cardiovascular: Yes: S1, S2 Respiratory: Yes: Regular, CTA Bilaterally Gastrointestinal: Yes: Normal Bowel Sounds, Soft Musculoskeletal: Yes: WNL Extremities: Yes: WNL Neurological: Yes: Alert, Oriented Psychiatric: Yes: Alert, Oriented Labs: CBC, BMP 07/07/19 07:15 07/07/19 07:15 INR, PTT INR 1.47 (0.83-1.09) H 07/04/19 05:24 Assessment/Plan patient with multiple medical problems wiht pancreatic cancer in sepsis and bacteremic admitted to icu i think his source his gi, Gram Negative Bacteremia likely GI source Sepsis Pancreatic Neuroendocrine Ca with liver mets DM Hypothyroidsm Thrombocytopenia Anemia plan repeat blood cx negative can change to oral augmentin 875 g bid for 4 more days
== END 2019-07-07 13:05 | disposition home or self-care (01) | DRG 871 ==
LOC: JER 14:17 → JERBED 18:14 → JICU 07-04 → J5S 07-05 13:30
PROVIDERS: ADMIT Internal Medicine; ATTEND Internal Medicine
DX: A41.50 Gram-negative sepsis, unspecified (principal); E43 Unspecified severe protein-calorie malnutrition; C25.9 Malignant neoplasm of pancreas, unspecified; C78.7 Secondary malignant neoplasm of liver and intrahepatic bile duct; R64 Cachexia; Z68.1 Body mass index [BMI] 19.9 or less, adult; R18.8 Other ascites; N13.30 Unspecified hydronephrosis; J90 Pleural effusion, not elsewhere classified; D64.9 Anemia, unspecified; D69.6 Thrombocytopenia, unspecified; E03.9 Hypothyroidism, unspecified; I10 Essential (primary) hypertension; R11.2 Nausea with vomiting, unspecified; R19.7 Diarrhea, unspecified; E10.65 Type 1 diabetes mellitus with hyperglycemia
CPT/HCPCS: 36415; 71045-TC-FY; 74177-TC; 80053; 81003; 82803; 82962; 83605; 83735; 83880; 84100; 84484; 85025; 85610; 85730; 87040; 87086; 87186; 87804; 93005; 93010; 93971-TC; 99285-25; J0131; J1644; J7030; Q9967